=== PATIENT | female | born 1950 | race Caucasian/White ===

== ENCOUNTER 2018-03-22 03:54 | Observation (INO) | payer MEDICARE ==
[~2018-03-22] VITALS: Ht 170.2 cm; Wt 93.2 kg
[2018-03-22 04:24] LABS: BASOPHILS # (AUTO) 0.1 X10'3 (0-0.2); BASOPHILS % (AUTO) 0.7 % (0-1); EOSINOPHILS # (AUTO) 0.1 X10'3 (0-0.9); EOSINOPHILS % (AUTO) 1.2 % (0-6); HEMATOCRIT 46.7 % (35.0-45.0); HEMOGLOBIN 15.6 g/dl (12.0-16.0); LYMPHOCYTES # (AUTO) 2.9 X10'3 (1.1-4.8); LYMPHOCYTES % (AUTO) 24.9 % (21-51); MEAN CORPUSCULAR HEMOGLOBIN 31.4 PG (27.0-31.0); MEAN CORPUSCULAR HGB CONC 33.4 % (33.0-36.5); MEAN CORPUSCULAR VOLUME 93.9 FL (78-98); MEAN PLATELET VOLUME 9.3 FL (7.4-10.4); MONOCYTES # (AUTO) 0.5 X10'3 (0-0.9); MONOCYTES % (AUTO) 3.9 % (2-12); NEUTROPHILS # (AUTO) 8.2 X10'3 (1.8-7.7); NEUTROPHILS % (AUTO) 69.3 % (42-75); PLATELET COUNT 175 X10'3 (140-440); RED BLOOD COUNT 4.97 X10'6 (4.20-5.60); RED CELL DISTRIBUTION WIDTH 12.5 % (11.5-14.5); WHITE BLOOD COUNT 11.8 X10'3 (4.5-11.0)
[2018-03-22 04:38] LABS: ALANINE AMINOTRANSFERASE 27 U/L (12-78); ALBUMIN/GLOBULIN RATIO 1.1 (1.1-1.5); ALKALINE PHOSPHATASE 101 IU/L (46-116); ANION GAP 12 (8-16); ASPARTATE AMINO TRANSFERASE 19 U/L (10-37); BLOOD UREA NITROGEN 22 MG/DL (7-18); BUN/CREATININE RATIO 26.2 (6.6-38.0); CALCIUM 9.1 MG/DL (8.5-10.1); CHLORIDE 103 MMOL/L (99-107); CREATININE 0.84 MG/DL (0.40-0.90); GLUCOSE 152 MG/DL (70-104); POTASSIUM 3.6 MMOL/L (3.5-5.1); SODIUM 140 MMOL/L (135-145); TOTAL CARBON DIOXIDE 25.1 MMOL/L (24-32); TOTAL PROTEIN 7.6 G/DL (6.4-8.2); eGFR 67 ML/MIN
[2018-03-22] MEDS ORDERED: pantoprazole 40 MG vial IV ONE (04:45)
[2018-03-22] MEDS ORDERED: nitroGLYCERIN 0.4mg/hour patch TD ONE (04:45)
[2018-03-22] MEDS ORDERED: acetaminophen 325mg tablet PO PRN (04:50)
[2018-03-22] MEDS ORDERED: ondansetron/PF 4mg/2ml inj IV PRN (04:50)
[2018-03-22] MEDS ORDERED: morphine 4 MG/ML inj SYRINge IV PRN ×2 (04:50)
[2018-03-22] MEDS ORDERED: docusate sod 100mg capsule PO PRN (04:50)
[2018-03-22] MEDS ORDERED: AMLO2.5T2 PO (04:59)
[2018-03-22] MEDS ORDERED: IRBE75TA9 PO (05:00)
[2018-03-22] MEDS ORDERED: LEVO75TA PO (05:02)
[2018-03-22] MEDS ORDERED: SIMV20TA5 PO (05:02)
[2018-03-22] MEDS ORDERED: ALLO100T PO (05:04)
[2018-03-22 05:18] LABS: INR 1.1 INR; PROTHROMBIN TIME 10.8 SECONDS (9.0-12.0)
[2018-03-22 05:19] LABS: PARTIAL THROMBOPLASTIN TIME 32 SECONDS (22-32)
--- NOTE | 2018-03-22 05:22 | NUR ---
Received report from THA Steward. Awaiting patient arrival to the floor.
--- NOTE | 2018-03-22 06:12 | NUR ---
Problems reprioritized. Patient report given, questions answered & plan of care reviewed with THA Mcclellan.
--- NOTE | 2018-03-22 06:34 | NUR ---
Patient in room [facility]. I have received report from THA Cyr and had the opportunity to ask questions and assume patient care.
[2018-03-22 07:46] VITALS: BP 132/59
[2018-03-22] MEDS ORDERED: levoTHYROXINE 75mcg tablet PO SCH (08:00)
[2018-03-22] MEDS ORDERED: amLODIPine 5mg tablet PO SCH (08:00)
[2018-03-22] MEDS ORDERED: enoxaparin 40mg/0.4ml syringe SQ SCH (08:00)
[2018-03-22] MEDS ORDERED: losartan 25mg tablet PO SCH (08:00)
[2018-03-22] MEDS ORDERED: CefTRIAXone/D5W-Rocephin 1gm 50 ML IV SCH (11:00)
[2018-03-22] MEDS ORDERED: metroNIDAZOLE-Flagyl 500mg/NS 100 ML IV SCH (11:00)
[2018-03-22 11:24] VITALS: BP 109/58
[2018-03-22 11:46] LABS: LIPASE 86 U/L (73-393)
[2018-03-22 12:47] LABS: ALANINE AMINOTRANSFERASE 29 U/L (12-78); ALBUMIN 3.8 G/DL (3.4-5.0); ALBUMIN/GLOBULIN RATIO 1.1 (1.1-1.5); ALKALINE PHOSPHATASE 79 IU/L (46-116); ANION GAP 10 (8-16); ASPARTATE AMINO TRANSFERASE 19 U/L (10-37); BILIRUBIN,TOTAL 1.7 MG/DL (0.1-1.0); BLOOD UREA NITROGEN 15 MG/DL (7-18); CALCIUM 8.9 MG/DL (8.5-10.1); CHLORIDE 105 MMOL/L (99-107); CREATININE 0.75 MG/DL (0.40-0.90); GLUCOSE 116 MG/DL (70-104); POTASSIUM 3.8 MMOL/L (3.5-5.1); SODIUM 142 MMOL/L (135-145); TOTAL CARBON DIOXIDE 26.9 MMOL/L (24-32); TOTAL PROTEIN 7.3 G/DL (6.4-8.2); eGFR 76 ML/MIN
[2018-03-22] MEDS ORDERED: METR-159 PO (13:37)
[2018-03-22] MEDS ORDERED: LEVO500T2 PO (13:37)
[2018-03-22] MEDS ORDERED: ASPI81TA30 PO (13:40)
--- NOTE | 2018-03-22 14:20 | NUR ---
Patient discharged. Patient walked to lobby by staff all belongings sent. at bedside and will drive the patient home in a private vehicle. All devices removed.
[2018-03-22] MEDS ORDERED: atorvastatin 20mg tablet PO SCH (21:00)
== END 2018-03-22 14:23 | disposition home or self-care (01) ==
LOC: ER 03:55 → ED HOLD 04:47 → CMPBEDREQ 06:13 → SUR 3N 06:13
PROVIDERS: ADMIT Family Medicine; ATTEND Internal Medicine
DX: K80.20 Calculus of gallbladder without cholecystitis without obstruction (principal); E03.9 Hypothyroidism, unspecified; I10 Essential (primary) hypertension; R07.89 Other chest pain; E78.5 Hyperlipidemia, unspecified; E80.7 Disorder of bilirubin metabolism, unspecified; Z87.891 Personal history of nicotine dependence; Z90.710 Acquired absence of both cervix and uterus
CPT/HCPCS: 36415; 71045; 76700; 80053; 83690; 83880; 84443; 84484; 85025; 85610; 85730; 87070; 93005; 93306; 96365; 96367; 96372; 96375; 99284; C9113; G0378; J0696; J2270; J3490; J1650